=== PATIENT | female | born 1985 | race Two or more races ===

== ENCOUNTER 2024-06-05 15:25 | Emergency (ER) | payer OTHER ==
[~2024-06-05] VITALS: Ht 160 cm; Wt 59.0 kg
[~2024-06-05 15:25] MED LIST: CATAFLAM50 MG PO
[2024-06-05] MEDS ORDERED: TOPROL XL25 M1 PO (15:49)
[2024-06-05] MEDS ORDERED: hydrOXYzine PAMOATE 25 MG CAPSULE PO STA (17:53)
[2024-06-05 18:33] LABS: HEMATOCRIT 40.6 % (36.0-45.00); HEMOGLOBIN 13.9 g/dL (12.0-15.00); MEAN CELL VOLUME 83.6 fL (80.00-100.00); MEAN CORPUSCULAR HEMOGLOBIN 28.6 pg (27.00-32.0); MEAN CORPUSCULAR HGB CONC 34.2 g/dl (32.0-36.0); PLATELET COUNT 253 K/uL (150-450); RED BLOOD COUNT 4.86 M/uL (4.00-6.00); RED CELL DISTRIBUTION WIDTH 13.2 % (11.5-14.5)
[2024-06-05 18:48] LABS: CALCIUM 9.4 mg/dL (8.5-10.1); CREATININE SERUM 0.95 mg/dL (0.55-1.02); GFR 65.15; POTASSIUM 3.94 mEq/L (3.5-5.1)
== END 2024-06-05 20:02 | disposition home or self-care (01) ==
LOC: ER 15:27
PROVIDERS: General Practice
DX: R07.9 Chest pain, unspecified (principal); Z91.041 Radiographic dye allergy status

== ENCOUNTER 2025-02-13 07:47 | Emergency (ER) | payer OTHER ==
[~2025-02-13] VITALS: Ht 157.5 cm; Wt 63.0 kg
[~2025-02-13 07:47] MED LIST changes: +TOPROL XL25 M1 PO
[2025-02-13] MEDS ORDERED: DEXILANT60 MG (08:03)
[2025-02-13] MEDS ORDERED: LEVSIN0.125 MG (08:03)
[2025-02-13] MEDS ORDERED: 0.9 % SODIUM CHLORIDE 1,000 ML IV STA (08:21)
[2025-02-13 09:18] LABS: BASO % 0.6 % (0.1-1.2); EOS # 0.27 (0.04-0.54); EOS % 3.3 % (0.7-7.0); LYMPH # 1.64 (1.18-3.74); LYMPH % 19.9 % (19.3-53.1); MEAN PLATELET VOLUME 11.70 fl (9.4-12.4); MONO # 0.37 (0.24-0.82); MONO % 4.5 % (4.7-12.5); NEUT # 5.91 (1.56-6.13); NEUT % 71.5 % (34.0-71.1); RED CELL DISTRIBUTION WIDTH 13.2 % (11.6-14.4)
[2025-02-13 09:42] LABS: BUN CREA RATIO 11.0 (7.0-25.0); CREATININE SERUM 0.73 mg/dL (0.55-1.02); GFR 87.85; GLUCOSE FASTING 95.0 mg/dL (65-100); OSMOLALITY SERUM 281.0 MOSM/KG (275-295)
[2025-02-13 10:10] LABS: URINE APPEARANCE Clear; URINE BILIRRUBIN Negative (NEGATIVE); URINE BLOOD Negative; URINE COLOR Yellow; URINE GLUCOSE Negative (NEGATIVE); URINE KETONE Negative (NEGATIVE); URINE LEUKOCYTE Negative; URINE NITRATE Negative; URINE PROTEIN Negative (NEGATIVE); URINE UROBILINOGEN 0.2 E.U./dl
[2025-02-13 10:11] LABS: URINE BACTERIA 1388.3 uL (0.0-1933); URINE EPITHELIAL CELLS 30.3 uL (0.0-38.8); URINE RBC 19.3 uL (0.0-20.8); URINE WBC 4.4 uL (0.0-23.2)
[2025-02-13 10:14] LABS: URINE CAST 0.14 uL (0.0-1.40)
[2025-02-13] MEDS ORDERED: LACTOBACILLUS ACIDOPHILUS 1 CAP CAP PO ONE (10:45)
[2025-02-13] MEDS ORDERED: SUCRALFATE 1 G TABLET PO ONE (14:15)
[2025-02-13] MEDS ORDERED: KETOROLAC TROMETHAMINE 30 MG VIAL IV ONE (14:15)
== END 2025-02-13 14:24 | disposition home or self-care (01) ==
LOC: ER 07:53
PROVIDERS: Emergency Medicine
DX: K52.9 Noninfective gastroenteritis and colitis, unspecified (principal); R10.2 Pelvic and perineal pain; Z91.013 Allergy to seafood; Z91.041 Radiographic dye allergy status

== ENCOUNTER 2025-05-16 17:35 | Emergency (ER) | payer OTHER ==
[~2025-05-16] VITALS: Ht 157.5 cm; Wt 60.3 kg
[~2025-05-16 17:35] MED LIST changes: +DEXILANT60 MG; +LEVSIN0.125 MG
[2025-05-16 18:09] VITALS: BP 135/90; O2SAT 99
[2025-05-16] MEDS ORDERED: PHENAZOPYRIDINE HCL 100 MG TABLET PO STA (19:42)
[2025-05-16] MEDS ORDERED: KETOROLAC TROMETHAMINE 30 MG VIAL IU STA (19:42)
[2025-05-16] MEDS ORDERED: TAMSULOSIN HCL 0.4 MG CAP PO STA (19:42)
[2025-05-16] MEDS ORDERED: 0.9 % SODIUM CHLORIDE 1,000 ML IV SCH (19:45)
[2025-05-16] MEDS ORDERED: KETOROLAC TROMETHAMINE 30 MG VIAL ONE (21:09)
[2025-05-16] MEDS ORDERED: PHENAZOPYRIDINE HCL 100 MG TABLET PO ONE (21:09)
[2025-05-16] MEDS ORDERED: TAMSULOSIN HCL 0.4 MG CAP PO ONE (21:09)
[2025-05-16 22:21] LABS: BASO % 0.7 % (0.1-1.2); EOS # 0.58 (0.04-0.54); EOS % 4.9 % (0.7-7.0); LYMPH # 4.41 (1.18-3.74); LYMPH % 37.2 % (19.3-53.1); MEAN PLATELET VOLUME 11.50 fl (9.4-12.4); MONO # 0.63 (0.24-0.82); MONO % 5.3 % (4.7-12.5); NEUT # 6.14 (1.56-6.13); NEUT % 51.6 % (34.0-71.1); RED CELL DISTRIBUTION WIDTH 13.9 % (11.6-14.4)
[2025-05-16 22:44] LABS: ALT/SGPT 20 U/L (12-78); AST/SGOT 12 U/L (15-37); BILIRUBIN TOTAL 0.24 mg/dL (0.3-1.2); BUN CREA RATIO 15 (7.0-25.0); CREATININE SERUM 0.71 mg/dL (0.55-1.02); GFR 90.72; GLOBULINA 4.2 G/DL (2.4-3.5); GLUCOSE FASTING 89 mg/dL (65-100); OSMOLALITY SERUM 278 MOSM/KG (275-295)
[2025-05-16 23:27] LABS: URINE APPEARANCE Clear; URINE BILIRRUBIN Negative (NEGATIVE); URINE BLOOD Negative; URINE COLOR Yellow; URINE GLUCOSE Negative (NEGATIVE); URINE KETONE Trace (NEGATIVE); URINE LEUKOCYTE Negative; URINE NITRATE Negative; URINE PROTEIN Negative (NEGATIVE); URINE UROBILINOGEN 0.2 E.U./dl
[2025-05-16 23:29] LABS: URINE BACTERIA 1659.6 uL (0.0-1933); URINE EPITHELIAL CELLS 17.9 uL (0.0-38.8); URINE RBC 30.6 uL (0.0-20.8); URINE WBC 11.9 uL (0.0-23.2)
[2025-05-16 23:40] LABS: URINE CAST 0.00 uL (0.0-1.40)
[2025-05-17] MEDS ORDERED: KETO10TA2 PO (01:13)
[2025-05-17] MEDS ORDERED: CIPRO500 MG PO (01:13)
[2025-05-17] MEDS ORDERED: PYRIDIUM200 MG PO (01:13)
[2025-05-17] MEDS ORDERED: TAMS0.4C PO (01:13)
== END 2025-05-17 01:23 | disposition home or self-care (01) ==
LOC: ER 17:35
PROVIDERS: Physician Assistant Medical
DX: N20.1 Calculus of ureter (principal); N39.0 Urinary tract infection, site not specified; Z91.013 Allergy to seafood; Z91.041 Radiographic dye allergy status